=== PATIENT | female | born 1995 | race Hispanic/Latino ===

== ENCOUNTER 2018-01-04 22:37 | Emergency (ER) | payer BC, OTHER ==
[2018-01-04] MEDS ORDERED: Ondansetron HCl/PF 4 MG/2 ML Vial ONE ×2 (22:51→23:38)
[2018-01-04 23:29] LABS: #Basophils 0.1 thou/uL (0.0-0.2); #Monocytes 0.7 thou/uL (0.11-0.59); #Neutrophils 4.4 thou/uL (1.40-6.50); %Basophils 0.8 % (0.0-1.0); %Eosinophils 0.5 % (0.0-10.0); %Lymphocytes 27.4 % (28.0-48.0); %Monocytes 9.3 % (0.0-4.0); %Neutrophils 62.1 % (31.0-61.0); Mean Corpuscular HGB CONC 34.5 g/dL (32.0-36.0); Mean Corpuscular Hemoglobin 30.8 pg (25.0-35.0); Mean Corpuscular Volume 89.3 fL (78.0-98.0); Mean Platelet Volume 6.9 fL (7.4-10.4); Platelet Count 203 thou/uL (130-400); RBC Distribution Width 10.4 % (11.5-14.5); Red Blood Cell (RBC) Count 4.22 mill/uL (4.00-5.20); White Blood Cell (WBC) Count 7.1 thou/uL (4.8-10.8)
[2018-01-04 23:32] LABS: ALT (SGPT) 15 U/L (8-55); AST (SGOT) 16 U/L (5-34); Albumin 4.4 g/dL (3.5-5.0); Alkaline Phosphatase 60 U/L (40-150); Anion Gap 15 mmol/L (10-20); BUN (Urea Nitrogen) 8 mg/dL (7.0-18.7); Bilirubin, Total 1.6 mg/dL (0.2-1.2); Calc. Creatinine Clearance 0 mL/min (70-130); Calcium 9.3 mg/dL (7.8-10.44); Carbon Dioxide 22 mmol/L (22-29); Chloride 110 mmol/L (98-107); Estimated GFR-MDRD Greater than 90; Globulin 2.7 g/dL (2.4-3.5); Glucose 105 mg/dL (70-105); Lipase 20 U/L (8-78); Potassium 3.1 mmol/L (3.5-5.1); Protein, Total 7.1 g/dL (6.0-8.3); Sodium 144 mmol/L (136-145)
[2018-01-04] MEDS ORDERED: Potassium Chloride 20 MEQ TAB ONE (23:49)
[2018-01-04] MEDS ORDERED: Magnesium Sulfate 2 GM/NS 0.9% 50 ML BAG ONE (23:52)
[2018-01-05] MEDS ORDERED: Potassium Chloride 20 MEQ TAB ONE
[2018-01-05 00:33] LABS: Bilirubin Negative (Negative); Blood, Urine Small (Negative); Clarity Clear (Clear); Glucose, Urine (Dipstick) Negative (Negative); Leukocyte Negative (Negative); Nitrite Negative (Negative); Protein, Urine (Dipstick) 100 mg/dL (Neg-Trace); Specific Gravity, Urine 1.025 (1.005-1.030); Urobilinogen 0.2 mg/dL (0.2-1.0)
[2018-01-05 00:36] LABS: Pregnancy Test - Urine (BHCG) Negative (Negative); Pregu Control Background? CLEAR/WHITE (CLR/WHITE); Pregu Control Bar Appear? YES (CONTROL BAR); Specific Gravity 1.025 (1.002-1.036)
[2018-01-05 00:38] LABS: Bacteria/HPF None Seen HPF (None Seen); Hyaline Casts/LPF 0-3 HYALINE CAST LPF (0-3 Hyaline); RBC/HPF 0-3 HPF (0-3); Squamous Epithelial 0-3 HPF (0-3); WBC/HPF 0-3 HPF (0-3)
== END 2018-01-05 00:57 | disposition home or self-care (01) ==
LOC: SCSER 22:37
DX: E87.6 Hypokalemia (principal); R11.2 Nausea with vomiting, unspecified; I47.1 Supraventricular tachycardia; F41.9 Anxiety disorder, unspecified
CPT/HCPCS: 80053; 80307; 81003; 81015; 81025; 83690; 85025; 96361; 96365; 96375; 96376; J2405; J3475

== ENCOUNTER 2018-07-29 21:52 | Emergency (ER) | payer BC, MEDICAID ==
[2018-07-29] MEDS ORDERED: Ondansetron PF 4 MG/2 ML Vial ONE (22:25)
[2018-07-29 22:39] LABS: #Lymphocytes 1.5 thou/uL (1.20-3.40); #Monocytes 0.4 thou/uL (0.11-0.59); #Neutrophils 7.6 thou/uL (1.40-6.50); %Basophils 0.5 % (0.0-1.0); %Eosinophils 0.2 % (0.0-10.0); %Lymphocytes 15.3 % (28.0-48.0); %Monocytes 4.1 % (0.0-4.0); %Neutrophils 79.9 % (31.0-61.0); Hemoglobin 14.3 g/dL (12.0-16.0); Mean Corpuscular HGB CONC 36.3 g/dL (32.0-36.0); Mean Corpuscular Hemoglobin 32.6 pg (25.0-35.0); Mean Corpuscular Volume 89.9 fL (78.0-98.0); Mean Platelet Volume 6.2 fL (7.4-10.4); Platelet Count 251 thou/uL (130-400); RBC Distribution Width 10.6 % (11.5-14.5); Red Blood Cell (RBC) Count 4.38 mill/uL (4.00-5.20); White Blood Cell (WBC) Count 9.5 thou/uL (4.8-10.8)
[2018-07-29 22:52] LABS: ALT (SGPT) 16 U/L (8-55); AST (SGOT) 16 U/L (5-34); Albumin 4.2 g/dL (3.5-5.0); Alkaline Phosphatase 46 U/L (40-150); Anion Gap 17 mmol/L (10-20); BUN (Urea Nitrogen) 6 mg/dL (7.0-18.7); Bilirubin, Total 1.4 mg/dL (0.2-1.2); Calc. Creatinine Clearance 0 mL/min (70-130); Calcium 9.7 mg/dL (7.8-10.44); Carbon Dioxide 17 mmol/L (22-29); Chloride 106 mmol/L (98-107); Estimated GFR-MDRD Greater than 90; Globulin 2.9 g/dL (2.4-3.5); Glucose 80 mg/dL (70-105); Potassium 3.4 mmol/L (3.5-5.1); Protein, Total 7.1 g/dL (6.0-8.3); Sodium 137 mmol/L (136-145)
== END 2018-07-29 23:30 | disposition home or self-care (01) ==
LOC: SCSER 21:52
DX: O21.9 Vomiting of pregnancy, unspecified (principal); O99.411 Diseases of the circulatory system complicating pregnancy, first trimester; I47.1 Supraventricular tachycardia; O99.341 Other mental disorders complicating pregnancy, first trimester; F41.9 Anxiety disorder, unspecified; Z3A.11 11 weeks gestation of pregnancy
CPT/HCPCS: 80053; 85025; 96361; 96374; J2405

== ENCOUNTER 2019-02-11 05:37 | Inpatient (IN) | payer BC, OTHER ==
[2019-02-11] MEDS ORDERED: Promethazine HCl 25 MG/ML VIAL IM PRN ×2 (05:54→11:33)
[2019-02-11] MEDS ORDERED: Ondansetron PF 4 MG/2 ML Vial IVP PRN ×3 (05:54→11:33)
[2019-02-11] MEDS ORDERED: hydrALAZINE 20 MG/ML VIAL SLOW IVP PRN ×2 (05:54→10:40)
[2019-02-11] MEDS ORDERED: CEFAZOLIN 2 GM in Premix Bag 1 BAG IVPB SCH (06:00)
[2019-02-11] MEDS ORDERED: Bicitra 30 ML UDCUP PO SCH (06:00)
[2019-02-11 06:09] VITALS: BMI 34.3
[2019-02-11] MEDS: Lactated Ringer's 1,000 ML IV SCH ×3 (06:15→22:00)
[2019-02-11 06:37] LABS: Hemoglobin 11.5 g/dL (12.0-16.0); Mean Corpuscular HGB CONC 34.5 g/dL (32.0-36.0); Mean Corpuscular Hemoglobin 29.3 pg (27.0-31.0); Mean Corpuscular Volume 84.8 fL (78.0-98.0); Mean Platelet Volume 7.6 fL (7.4-10.4); Platelet Count 230 thou/uL (130-400); RBC Distribution Width 15.2 % (11.5-14.5); Red Blood Cell (RBC) Count 3.95 mill/uL (4.20-5.40); White Blood Cell (WBC) Count 8.8 thou/uL (4.8-10.8)
[2019-02-11] MEDS ORDERED: PROPOFOL 0 ML ONE (06:43)
[2019-02-11] MEDS ORDERED: Fentanyl 100 MCG/2 ML VIAL ONE (06:43)
[2019-02-11] MEDS ORDERED: Oxytocin 10 UNITS/ML VIAL ONE ×2 (06:44→08:13)
[2019-02-11 07:16] LABS: Syphilis Antibody Nonreactive (Nonreactive); Syphilis Antibody Index 0.05 S/CO (<1.00 Non-Reactive)
[2019-02-11 07:17] LABS: HBSAg Index 0.18 S/CO (0-0.99); Hep B Surf Ag Non-Reactive S/CO (NonReactive)
--- NOTE | 2019-02-11 07:21 | PDOC.LDHP ---
Labor and Delivery H&P Chief complaint: scheduled section HPI: 23yo at 39w0d by LMP here for PCS for suspected macrosomia. Good FM. Some ctx. Current gestational age (weeks): 39 Due date: 02/18/19 Dating criteria: last menstrual period Grav: 1 Para: 0 OB History Details: positive UDS for THC Abnormal US findings: No (EFW > 99%ile) Past Medical History: hx of SVT hx of CT/GC this Current medications: pre- vitamins Previous surgical history: none Allergies/Adverse Reactions: Allergies Allergy/AdvReac Type Severity Reaction Status Date / Time No Known Allergies Allergy Verified 02/11/19 06:02 Social history: drug use (THC prior to ) - Physical Exam Vital signs reviewed and normal: yes General: NAD Heart: RRR Lungs: CTAB Abdomen: gravid Extremeties: no edema FHT: category 1 Rouse contractions every: 2-4min - OB Labs Blood type: B RH: positive Antibody Screen: negative HIV: negative RPR: negative HEPSAg: negative 1 hour GCT: positive 3 hour GTT: neg GBS: positive Urine drug screen: positive Rubella: immune - Assessment L&D Assessment: scheduled primary section - Plan Plan: admit to L&D, to OR for section, informed consent obtained, anesthesia consult for pain management
--- NOTE | 2019-02-11 07:43 | PDOC.OPDEL ---
OB Operative/Delivery Note Delivery Dr/Surgeon: Kimberly Assist: Carin Pre-Delivery Diagnosis: scheduled section Procedure/Post Delivery Dx: primary low transverse CS Weeks gestation: 39 Anesthesia: spinal - Findings A Sex: male Weight: 9 lb 15 oz - 1 min: 5 - 5 min: 9 - Additional Findings/Plan Placenta delivered: spontaneous findings: low transverse hysterotomy without extension, normal uterus, normal tubes, normal ovaries Estimated blood loss: 500 Post delivery plan: routine recovery
[2019-02-11] MEDS ORDERED: Promethazine HCl 25 MG/ML VIAL ONE (08:08)
[2019-02-11] MEDS ORDERED: Ketorolac Tromethamine 30 MG/ML VIAL ONE ×2 (10:00→10:09)
--- NOTE | 2019-02-11 10:20 | OP ---
DATE OF PROCEDURE: 02/11/2019 PREOPERATIVE DIAGNOSES: 1. Intrauterine at 39 weeks and 0 days. 2. Suspected macrosomia. 3. Declines trial of labor. POSTOPERATIVE DIAGNOSES: 1. Intrauterine at 39 weeks and 0 days. 2. Suspected macrosomia. 3. Declines trial of labor. PROCEDURE PERFORMED: Primary low-transverse section via Pfannenstiel skin incision. ANESTHESIA: Spinal. CLOTHING MANAGER SURGEON: Paulina Del Rosario DO ESTIMATED BLOOD LOSS: 500 mL. IVF: 3 L of crystalloid. URINE OUTPUT: 100 mL of clear urine. PATHOLOGY: None. COMPLICATIONS: None. DRAINS: Wong catheter. FINDINGS: Male , cephalic presentation, clear amniotic fluid. Apgars are pending. Weight is 9 pounds 15 ounces. Hysterotomy without extension. Normal uterus, ovaries, and tubes bilaterally. OPERATIVE TECHNIQUE: The patient was taken to the operating room, where spinal anesthesia was obtained without difficulty. The patient was prepped and draped in a sterile fashion in dorsal supine position with leftward tilt. After ensuring adequacy of anesthesia, a Pfannenstiel skin incision was made and carried down to the underlying subcutaneous tissue with the Bovie. The fascia was nicked in the midline with the Bovie and carried laterally with the Rangel scissors. Perforators were cauterized with the use of the hemostats. The superior aspect of the fascia was tented with two Stacey's and dissected off the rectus with the Rangel scissors. The inferior aspect of the fascia was tented with two Stacey's and dissected off the rectus down to the pubic symphysis with the Rangel's. The rectus was bluntly divided in the midline. The peritoneum was bluntly entered into and manually retracted. The Uriel O retractor was placed, and the lower uterine segment was incised in a transverse fashion and extended with a Bobby maneuver. The infant's head was brought to the hysterotomy and delivered with fundal pressure. The infant's cord was clamped and infant was handed to awaiting Rene team. The cord blood was obtained, and the placenta was allowed to spontaneously deliver. The uterus was exteriorized, cleared of all clots and debris. The posterior cul-de-sac was left out. The uterus was placed back into the abdomen. The hysterotomy was repaired with a #1 Monocryl in a running locking fashion with excellent hemostasis. The pelvis and paracolic gutters were irrigated and suctioned, and hemostasis was again noted. The Uriel O retractor was removed. The rectus muscles were examined and noted to be hemostatic. The fascia was reapproximated with a 0 PDS x2 sutures with excellent reapproximation. The subcutaneous tissue was irrigated and cauterized of any bleeders and reapproximated with a 2-0 plain gut in a running fashion. The skin was closed with 4-0 Monocryl in a subcuticular fashion. Dermabond was applied as well as a pressure dressing. The patient tolerated the procedure well. Sponge, lap, and needle counts were correct x2. The patient was taken to recovery room in stable condition. The patient received Ancef 2 g prior to the procedure. Job ID: [id number]
[2019-02-11 10:30] LABS: Medtox Reader # READER 4
[2019-02-11] MEDS ORDERED: Ketorolac Tromethamine 30 MG/ML VIAL IVP SCH ×2 (10:30→10:45)
[2019-02-11 10:31] LABS: Amphetamine Not Detected (NotDetected); Barbiturates Screen Not Detected (NotDetected); Benzodiazepine Screen Not Detected (NotDetected); Cocaine Metabolite Screen Not Detected (NotDetected); Methadone Not Detected (NotDetected); Methamphetamine Detected (NotDetected); Opiate Screen Not Detected (NotDetected); Oxycodone Screen Not Detected (NotDetected); Phencyclidine (PCP) Not Detected (NotDetected); THC/Cannabinoid Screen Not Detected (NotDetected); Tricyclic Screen Not Detected (NotDetected)
[2019-02-11] MEDS ORDERED: Ondansetron HCl/PF 4 MG/2 ML Vial IVP PRN (10:31)
[2019-02-11] MEDS ORDERED: Meperidine HCl/PF 25 MG/ML VIAL SLOW IVP PRN (10:31)
[2019-02-11] MEDS ORDERED: L&D-Morphine 4 MG/ML VIAL SLOW IVP PRN (10:31)
[2019-02-11] MEDS ORDERED: HYDROmorphone 2 MG/ML VIAL SLOW IVP PRN (10:31)
[2019-02-11 10:32] LABS: Medtox Control Line Valid? VALID (VALID)
[2019-02-11] MEDS ORDERED: Adacel (T-DAP) 0.5 ML SYRINGE IM ONE (10:40)
[2019-02-11] MEDS ORDERED: Lanolin Ointment 7 GM TUBE TOP PRN (10:40)
[2019-02-11] MEDS ORDERED: HYDROcodone/Acetaminophen 5/325 mg Tablet PO PRN ×2 (10:40)
[2019-02-11] MEDS ORDERED: Acetaminophen 325 MG TAB PO PRN (10:40)
[2019-02-11] MEDS ORDERED: diphenhydrAMINE 25 MG CAP PO PRN ×2 (10:40→11:33)
[2019-02-11] MEDS ORDERED: Bisacodyl 10 MG SUPP PR PRN (10:40)
[2019-02-11] MEDS ORDERED: diphenhydrAMINE 50 MG/ML VIAL IM PRN (11:33)
[2019-02-11] MEDS ORDERED: diphenhydrAMINE 50 MG/ML VIAL IVP PRN (11:33)
[2019-02-11] MEDS ORDERED: Naloxone HCl 0.4 mg/ml Vial IV PRN (11:33)
[2019-02-11] MEDS ORDERED: Zolpidem Tartrate 5 MG TAB PO PRN (11:33)
[2019-02-11] MEDS ORDERED: fentaNYL Citrate/PF 2,000 MCG in Sodium Chloride 0.9% 60 ML IV PRN (11:33)
[2019-02-11] MEDS ORDERED: Communication Order-Pharmacy FS SCH (11:45)
[2019-02-11] MEDS: Prenatal Vitamin 1 TAB PO SCH (12:32)
[2019-02-11] MEDS: Simethicone Chewable 80 MG TAB PO PRN ×2 (14:19→22:01)
[2019-02-11] MEDS: Ketorolac Tromethamine 30 MG/ML VIAL IVP PRN ×2 (14:19→21:58)
[2019-02-11] MEDS: Ibuprofen 800 MG TAB PO SCH ×2 (14:21→23:10)
[2019-02-11] MEDS ORDERED: ePHEDrine/0.9% NaCl/PF SYRINGE 50 mg/10 ml ONE (14:45)
[2019-02-11] MEDS: Docusate Calcium (SURFAK) 240 MG CAP PO SCH (23:09)
[2019-02-11] MEDS: Ferrous Sulfate 325 MG TAB PO SCH (23:10)
[2019-02-12 06:42] LABS: Hemoglobin 8.7 g/dL (12.0-16.0); Mean Corpuscular HGB CONC 33.9 g/dL (32.0-36.0); Mean Corpuscular Hemoglobin 28.9 pg (27.0-31.0); Mean Corpuscular Volume 85.4 fL (78.0-98.0); Mean Platelet Volume 7.6 fL (7.4-10.4); Platelet Count 184 thou/uL (130-400); RBC Distribution Width 15.2 % (11.5-14.5); Red Blood Cell (RBC) Count 3.01 mill/uL (4.20-5.40); White Blood Cell (WBC) Count 8.6 thou/uL (4.8-10.8)
[2019-02-12] MEDS: Ketorolac Tromethamine 30 MG/ML VIAL IVP PRN (07:28)
--- NOTE | 2019-02-12 12:46 | PDOC.PP ---
Post Progress Note Post Day #: 1 PO intake tolerated: yes Flatus: yes Ambulation: yes Vital Signs (12 hours) Temp Pulse Resp BP Pulse Ox 02/12/19 12:24 97.9 F 88 20 115/58 L 02/12/19 08:36 98.3 F 104 H 20 99/61 99 02/12/19 04:30 98.4 F 92 18 107/57 L 96 Weight Weight 200 lb - Physical Examination General: NAD Respiratory: non-labored breathing Abdominal: no distention, appropriately TTP Fundus firm & at: umb Extremities: negative homans (B) Skin: CS incision dry & intact Neurological: no gross focal deficits Psychiatric: normal affect Result Diagrams: 02/12/19 05:56 Additional Labs: Post Labs Blood Type B POSITIVE 02/11/19 10:45 Hep Bs Antigen Non-Reactive S/CO (NonReactive) 02/11/19 06:21 - Assessment/Plan POD1 s/p PCS for macrosomia VSSAF hgb 11.7-->ebl 700cc-->hgb 8.7, acute blood loss anemia. No s/sx anemia, cont Fe and PNV. Doing well, met appropriate milestones, pain controlled. Rh pos RImm Hx of pos UDS for THC, UDS pos for meth this admission however pt got ephedrine prior to UDS. Breastpumping, in NICU on oxygen. Cont postop care.
[2019-02-12] MEDS: Ibuprofen 800 MG TAB PO SCH ×3 (14:17→21:41)
[2019-02-12] MEDS: Prenatal Vitamin 1 TAB PO SCH (14:25)
[2019-02-12] MEDS: Docusate Calcium (SURFAK) 240 MG CAP PO SCH ×2 (14:26→21:41)
[2019-02-12] MEDS: Ferrous Sulfate 325 MG TAB PO SCH ×2 (14:26→21:41)
[2019-02-12] MEDS ORDERED: HYDROcodone/Acetaminophen 5/325 mg Tablet PO PRN (20:24)
[2019-02-12] MEDS: HYDROcodone/Acetaminophen 5/325 mg Tablet PO PRN (20:39)
[2019-02-13] MEDS: Ibuprofen 800 MG TAB PO SCH ×2 (04:50→15:37)
[2019-02-13] MEDS: HYDROcodone/Acetaminophen 5/325 mg Tablet PO PRN (04:51)
--- NOTE | 2019-02-13 07:52 | PDOC.PP ---
Post Progress Note Post Day #: 2 Subjective: Doing well, no complaints. PO intake tolerated: yes Flatus: yes Ambulation: yes Vital Signs (12 hours) Temp Pulse Resp BP Pulse Ox 02/13/19 01:02 97.6 F 81 16 106/59 L 02/12/19 20:06 98.9 F 89 20 102/54 L 97 Weight Weight 200 lb - Physical Examination General: NAD Respiratory: non-labored breathing Abdominal: lochia (normal), no distention, appropriately TTP Fundus firm & at: below umbilicus Skin: CS incision dry & intact, no rash Neurological: no gross focal deficits Psychiatric: A&Ox3, normal affect Result Diagrams: 02/12/19 05:56 Additional Labs: Post Labs Blood Type B POSITIVE 02/11/19 10:45 Hep Bs Antigen Non-Reactive S/CO (NonReactive) 02/11/19 06:21 (1) delivery delivered Code(s): O82 - ENCOUNTER FOR DELIVERY WITHOUT INDICATION Status: Acute - Assessment/Plan Continue routine postop management. Anticipate d/c Friday or Friday.
[2019-02-13] MEDS: Docusate Calcium (SURFAK) 240 MG CAP PO SCH (09:56)
[2019-02-13] MEDS: Ferrous Sulfate 325 MG TAB PO SCH (09:56)
[2019-02-13] MEDS: Prenatal Vitamin 1 TAB PO SCH (09:57)
[2019-02-13 12:21] VITALS: BP 107/57; TEMP 98
--- NOTE | 2019-02-14 00:57 | DIS ---
DATE OF ADMISSION: 02/11/2019 DATE OF DISCHARGE: 02/13/2019 ADMITTING DIAGNOSES: 1. Large for gestational age fetus. 2. Intrauterine at 39 weeks. 3. Suspected cephalopelvic disproportion. DISCHARGE DIAGNOSES: 1. Large for gestational age fetus. 2. Intrauterine at 39 weeks. 3. Suspected cephalopelvic disproportion. PROCEDURE PERFORMED: Primary lower transverse section. CONSULTATIONS: None. HOSPITAL COURSE: The patient is a 23-year-old G1, now P1 female, presenting for a scheduled primary at 39 weeks for suspected macrosomia. For complete details, please refer to the operative note. The patient had without complications. Her postoperative course has been uncomplicated. She is now postop day #2. She is tolerating p.o., voiding on her own, having decreased lochia and good pain control, and is requesting for discharge. PHYSICAL EXAMINATION: VITAL SIGNS: Today, blood pressure 107/57, temperature 98.0, pulse of 85, respiratory rate of 12, saturating 98% on room air. GENERAL: She appears to be in no acute distress. She is alert and oriented, cooperative, and pleasant to interact with. HEENT: Head is normocephalic, atraumatic. Incision is clean, dry, and intact with no redness or discharge. EXTREMITIES: Have some edema, but they are symmetrical and nontender. LABORATORY DATA: Discharge hemoglobin is 8.7 and hematocrit 25.7, down from 11.5 and 33.5. The patient is being discharged home. She has prescriptions already sent by her Dr. Faith Harris. I have given her instructions to follow up in 2 weeks for a postop incision check and to seek medical attention sooner if she experiences fever, increasing pain or bleeding, redness or drainage from the incision site. She has been given limitations of no driving for 2 weeks, 15 pounds weight limit for next to 6 weeks, and no sex for the next 4 to 6 weeks. Job ID: [id number]
== END 2019-02-13 17:00 | disposition home or self-care (01) | DRG 787 ==
LOC: L&D 05:37 → 3SW 11:37
PROVIDERS: ADMIT Student in an Organized Health Care Education/Training Program; ATTEND Student in an Organized Health Care Education/Training Program
PROC: 10D00Z1 Extraction of Products of Conception, Low, Open Approach (ICD-10-PCS; principal; 2019-02-11)
DX: O36.63X0 Maternal care for excessive fetal growth, third trimester, not applicable or unspecified (principal); D62 Acute posthemorrhagic anemia; O99.324 Drug use complicating childbirth; O99.824 Streptococcus B carrier state complicating childbirth; O99.02 Anemia complicating childbirth; F15.90 Other stimulant use, unspecified, uncomplicated; Z3A.39 39 weeks gestation of pregnancy; Z37.0 Single live birth; O33.9 Maternal care for disproportion, unspecified
CPT/HCPCS: 36415; 51702; 80306; 85027; 86780; 86850; 86900; 86901; 87340; J0690; J1885; J2550; J2590; J2704; J3010; J3490